=== PATIENT | female | born 1955 | race Caucasian/White ===

== ENCOUNTER 2016-11-12 11:01 | Day surgery (SDC) | payer OTHER ==
[~2016-11-12 11:01] MED LIST: Lidocain 1% EPI 1:100,000 * 30 ML MDV ONE
[2016-11-12] MEDS ORDERED: Bupivacaine 0.25% SDV* 30 ML ONE (14:21)
[2016-11-12 15:31] VITALS: BP 116/77
--- NOTE | 2016-11-13 02:06 | OP ---
DATE OF OPERATION: 11/12/16 [facility] DATE OF : 59 SURGEON: Ezequiel Melton MD MANAGER LAW: JAIDEN Nelson ANESTHESIOLOGIST: None. ANESTHESIA: Local only with 1% lidocaine with epinephrine and bicarbonate. PRE-OP DIAGNOSIS: Left carpal tunnel syndrome. POST-OP DIAGNOSIS: Left carpal tunnel syndrome. OPERATIVE PROCEDURE: Left open carpal tunnel release. INDICATIONS: Geovanna is 61. She has left carpal tunnel syndrome clinically and electrodiagnostically. It has been progressive. She has not responded adequately to nonoperative treatments. We talked about risks and benefits and she elected to proceed. EBL: 5 mL. COMPLICATIONS: None. FINDINGS: As expected. DESCRIPTION OF PROCEDURE: Geovanna was seen in the preoperative holding area and the correct site, side, and procedure were identified. We had a time-out. Then, I infiltrated the operative area with 1% lidocaine with epinephrine and bicarbonate. The patient was then brought back to the operating room and the arm was prepped and draped in the usual fashion. A formal time-out was performed. I began by making an incision 2 to 3 cm in length longitudinally in the standard location for an open carpal tunnel release. Dissection was carried down through the subcutaneous tissue and palmar fascia to expose the transverse carpal ligament. I then began the release distally and released the transverse carpal ligament just off the radial aspect to the hook of the hamate to the level of the proximal aspect of the incision. I then released the subcutaneous tissue and retracted this ulnarly and superficially. Using the tenotomy scissors under direct visualization, I released the rest of the transverse carpal ligament and the distal antebrachial fascia just ulnar to the palmaris longus tendon to a level several centimeters proximal to the wrist flexion crease. I then checked the decompression. There was no compression on the nerve proximally or distally. We, therefore, irrigated the wound. The skin was closed with some 4-0 nylon suture. The operative area was infiltrated with 0.25% Marcaine. The wound was dressed with Xeroform, 4x4's, sterile Webril, and an Kenny wrap. She was then taken to recovery room in stable condition. [id number]/[facility] #: [id number] [facility]
== END 2016-11-12 15:43 | disposition home or self-care (01) ==
LOC: OREAST 11:01
PROVIDERS: ATTEND Orthopaedic Surgery Hand Surgery
DX: G56.02 Carpal tunnel syndrome, left upper limb (principal); F17.210 Nicotine dependence, cigarettes, uncomplicated

== ENCOUNTER 2016-11-18 15:31 | Emergency (ER) | payer OTHER ==
[2016-11-18 16:38] VITALS: BP 126/72
--- NOTE | 2016-11-18 16:53 | UC ---
Skin Complaint HPI - HPI Summary HPI Summary: The patient comes in today for: 1. Rope burn: Onset: 2 hours ago. Palliative/provocative: Sore to touching. Quality: Burning sensation Region: Right distal forearm. Severity: 6/10 Time: Constant. Associated symptoms: Event: Her dog ran and caused the rope to pull around her wrist. Patient states that the ultracet is not meeting her pain control needs. She has primary care provider with whom she has an appointment next week. * - History of Current Complaint Chief Complaint: UCSkin Time Seen by Provider: 11/18/16 16:48 Stated Complaint: RT WRIST ROPE BURN Hx Obtained From: Patient - Allergy/Home Medications Allergies/Adverse Reactions: Allergies Allergy/AdvReac Type Severity Reaction Status Date / Time No Known Allergies Allergy Verified 11/18/16 16:21 Home Medications: Home Medications Acetaminophen [Mapap] 1,000 mg PO TID 11/18/16 [History Confirmed 11/18/16] traMADol TAB* [Ultram*] 50 mg PO Q6HR PRN 11/18/16 [History Confirmed 11/18/16] Review of Systems Constitutional: Negative Skin: Rash Eyes: Negative ENT: Negative Respiratory: Cough - She is on medication for this, but she does not know the name of the medication. Cardiovascular: Negative Gastrointestinal: Negative Genitourinary: Negative All Other Systems Reviewed And Are Negative: Yes PMH/Surg Hx/FS Hx/Imm Hx Previously Healthy: No - Right hand pain. Endocrine History Of: Denies: Diabetes, Thyroid Disease, Hyperthyroidism, Hypothyroidism, Dyslipidemia Cardiovascular History Of: Denies: Cardiac Disorders, Hypertension, Pacemaker/ICD, Myocardial Infarction , Congestive Heart Failure, Atrial Fibrillation, Deep Vein Thrombosis, Bleeding Disorders Respiratory History Of: Denies: COPD, Asthma, Bronchitis, Pneumonia, Pulmonary Embolism GI/ History Of: Denies: Gastroesophageal Reflux, Ulcer, Gastrointestinal Bleed, Gall Bladder Disease, Kidney Stones, Diverticulitis, Renal Disease, Urosepsis Neurological History Of: Denies: TIA, CVA, Dementia, Seizures, Migraine Psychological History Of: Denies: Anxiety, Depression, Bipolar Disorder, Schizophrenia, Post Traumatic Stress Disorder Cancer History Of: Reports: Cervical Cancer - 20 years ago. Denies: Lung Cancer, Colorectal Cancer, Breast Cancer, Prostate Cancer Other History Of: Negative For: HIV, Hepatitis B, Hepatitis C, Anticoagulant Therapy - Surgical History Surgical History: Yes Surgery Procedure, Year, and Place: Hysterectomy. LEFT CARPAL TUNNEL REPAIR 05/21 - Family History Known Family History: Positive: Cardiac Disease Negative: Hypertension, Blood Disorder - Social History Occupation: Unemployed Alcohol Use: None Substance Use Type: None Smoking Status (MU): Heavy Every Day Tobacco Smoker Type: Cigarettes Amount Used/How Often: 1 PPD Have You Smoked in the Last Year: Yes Household Exposure Type: Cigarettes - Immunization History Most Recent Tetanus Shot: 10 YEARS AGO Physical Exam Triage Information Reviewed: Yes Appearance: Well-Appearing, No Pain Distress, Well-Nourished Vital Signs: Initial Vital Signs Temp 98.6 F 11/18/16 16:26 Pulse 60 11/18/16 16:26 Resp 18 11/18/16 16:26 BP 126/72 11/18/16 16:26 Pulse Ox 97 11/18/16 16:26 Vital Signs Reviewed: Yes Eyes: Positive: Conjunctiva Clear. Negative: Discharge ENT: Positive: Hearing grossly normal. Negative: Pharyngeal erythema, Nasal congestion, Nasal drainage, Tonsillar swelling, Tonsillar exudate - Left ear: TM daniels Right ear: cerumen impaction. Dental: Negative: Gross Decay/Caries @, Dental Fracture @ Neck: Positive: Supple, Nontender, No Lymphadenopathy. Negative: Nuchal Rigidity Respiratory: Positive: Chest non-tender, Lungs clear, No respiratory distress, No accessory muscle use, Rhonchi - Slight upper airway rhonchi. Cardiovascular: Positive: RRR, No Murmur Abdomen Description: Positive: Nontender, No Organomegaly, Soft. Negative: Distended, Guarding Musculoskeletal: Positive: Strength Intact, ROM Intact, No Edema Neurological: Positive: Alert, Muscle Tone Normal Psychological: Positive: Age Appropriate Behavior, Consolable Skin: Positive: rashes - She has a linear abrasion around the wrist on the right. Slight erythema. No bleeding. Course/Dx - Course Course Of Treatment: Silvadene, dressing right forearm/wrist area. - Diagnoses Provider Diagnoses: Abrasion left forearm. Discharge - Discharge Plan Condition: Stable Disposition: HOME Patient Education Materials: Abrasion (ED) Referrals: No Primary Care Phys,NOPCP [Primary Care Provider] - 5 Days (Please see your primary care provider in 3-6 days to see how well you are doing with your injury. If you get worse, please be seen sooner. )
[2016-11-18] MEDS ORDERED: Silver Sulfadiazine 1%* 20 GM TOPICAL ONE (16:58)
== END 2016-11-18 17:31 | disposition home or self-care (01) ==
LOC: UCCORT 15:31
DX: S50.812A Abrasion of left forearm, initial encounter (principal); X58.XXXA Exposure to other specified factors, initial encounter; Y93.9 Activity, unspecified; Y92.9 Unspecified place or not applicable; Z85.41 Personal history of malignant neoplasm of cervix uteri; Z90.710 Acquired absence of both cervix and uterus; F17.210 Nicotine dependence, cigarettes, uncomplicated
CPT/HCPCS: 99213; A9270-GY; G0463

== ENCOUNTER 2017-03-08 14:15 | Emergency (ER) | payer OTHER ==
[2017-03-08] MEDS ORDERED: Ibuprofen TAB* 600 MG PO ONE (14:33)
--- NOTE | 2017-03-08 14:40 | UC ---
Lower Extremity/Ankle HPI - HPI Summary HPI Summary: Patient was walking up stairs, tripped on a blanket she was carrying up the stairs, fell and slipped on her left side, pain in the lower leg and ankle, cant walk. - History of Current Complaint Chief Complaint: UCLowerExtremity Stated Complaint: LEFT ANKLE INJURY Time Seen by Provider: 03/08/17 14:30 Hx Obtained From: Patient ?: No Onset/Duration: Sudden Onset, Lasting Hours Severity Initially: Severe Severity Currently: Severe Aggravating Factor(s): Standing, Ambulation Alleviating Factor(s): Rest Able to Bear Weight: No - Allergies/Home Medications Allergies/Adverse Reactions: Allergies Allergy/AdvReac Type Severity Reaction Status Date / Time No Known Allergies Allergy Verified 03/08/17 14:24 PMH/Surg Hx/FS Hx/Imm Hx Previously Healthy: Yes Other History Of: Negative For: HIV, Hepatitis B, Hepatitis C, Anticoagulant Therapy - Surgical History Surgical History: Yes Surgery Procedure, Year, and Place: Hysterectomy. Cataracts-lens implant - Family History Known Family History: Positive: Cardiac Disease Negative: Hypertension, Blood Disorder - Social History Alcohol Use: None Substance Use Type: None Smoking Status (MU): Heavy Every Day Tobacco Smoker Type: Cigarettes Amount Used/How Often: 1 PPD Have You Smoked in the Last Year: Yes Household Exposure Type: Cigarettes - Immunization History Most Recent Influenza Vaccination: 2017 Most Recent Tetanus Shot: 10 YEARS AGO Review of Systems Constitutional: Negative Skin: Negative Eyes: Negative ENT: Negative Respiratory: Negative Cardiovascular: Negative Gastrointestinal: Negative Genitourinary: Negative Motor: Negative Neurovascular: Negative Musculoskeletal: Arthralgia, Decreased ROM, Edema, Myalgia Neurological: Negative Psychological: Negative All Other Systems Reviewed And Are Negative: Yes Physical Exam Triage Information Reviewed: Yes Appearance: Well-Appearing, Well-Nourished, Pain Distress Vital Signs: Initial Vital Signs Temp 98 F 03/08/17 14:26 Pulse 79 03/08/17 14:26 Resp 16 03/08/17 14:26 BP 115/62 03/08/17 14:26 Pulse Ox 96 03/08/17 14:26 Vital Signs Reviewed: Yes Eye Exam: Normal ENT Exam: Normal ENT: Positive: Pharynx normal, Pharyngeal erythema, TMs normal Dental Exam: Normal Neck exam: Normal Neck: Positive: Supple, Nontender, No Lymphadenopathy Respiratory Exam: Normal Respiratory: Positive: Chest non-tender, Lungs clear, Normal breath sounds Cardiovascular Exam: Normal Cardiovascular: Positive: RRR, No Murmur, Pulses Normal Abdominal Exam: Normal Abdomen Description: Positive: Nontender, No Organomegaly, Soft Bowel Sounds: Positive: Present Musculoskeletal Exam: Normal Musculoskeletal: Positive: Strength Limited @ - cant bear weight, ROM Limited @ - in all directions, Edema @ - lateral side of ankle Neurological Exam: Normal Neurological: Positive: Alert, Muscle Tone Normal Psychological Exam: Normal Skin Exam: Normal Lower Extremity Course/Dx - Course Course Of Treatment: hx obtained, exam performed ,meds reviewed, xray obtained, consulted Dr Mims who recommended a posterior splint with side bars, follow up in the office tomorrow. splint applied, crutches given. norco dispensed. referral to ortho - Differential Dx/Diagnosis Differential Diagnosis/HQI/PQRI: Contusion, Dislocation, Fracture (Closed), Sprain, Strain Provider Diagnoses: tibial fracture, left, - Physician Notifications Discussed Patient Care With: Walker Mims Time Discussed With Above Provider: 15:05 Discharge - Discharge Plan Condition: Stable Disposition: HOME Patient Education Materials: Leg Fracture (ED) Referrals: No Primary Care Phys,NOPCP [Medical Doctor] - Walker Mims MD [Medical Doctor] - Additional Instructions: 1. no weight bearing 2. keep leg elevated at rest. 3. continue with iburprofen 600 mg every 6-8 hours. 4. I dispensed a NORCO to take at bedtime. 5. follow up with the orthopedic tomorrow, Dr Mims is the ortho who was consulted on your case.
--- NOTE | 2017-03-08 15:13 | RAD ---
Indication: LEFT lower leg/ankle pain post fall. Comparison: No relevant prior exams available on the [facility] PACS for comparison. Technique: AP, mortise, and lateral views LEFT ankle. AP and lateral views LEFT lower leg. Report: Comminuted fracture involving the distal diaphysis metaphysis junction of the tibia with intra-articular extension at the central to lateral aspect of the tibial plafond with mild osteochondral impaction. 1.5 cortex width posterior displacement. No associated fracture of the fibula or more proximal tibia evident. Normal proximal tibia fibula and ankle mortise alignment. Soft tissue swelling about the lower leg and ankle. IMPRESSION: Comminuted fracture involving the distal diaphysis metaphysis junction of the tibia with intra-articular extension at the central to lateral aspect of the tibial plafond with mild osteochondral impaction. 1.5 cortex width posterior displacement.
--- NOTE | 2017-03-08 15:13 | RAD ---
Indication: LEFT lower leg/ankle pain post fall. Comparison: No relevant prior exams available on the [facility] PACS for comparison. Technique: AP, mortise, and lateral views LEFT ankle. AP and lateral views LEFT lower leg. Report: Comminuted fracture involving the distal diaphysis metaphysis junction of the tibia with intra-articular extension at the central to lateral aspect of the tibial plafond with mild osteochondral impaction. 1.5 cortex width posterior displacement. No associated fracture of the fibula or more proximal tibia evident. Normal proximal tibia fibula and ankle mortise alignment. Soft tissue swelling about the lower leg and ankle. IMPRESSION: Comminuted fracture involving the distal diaphysis metaphysis junction of the tibia with intra-articular extension at the central to lateral aspect of the tibial plafond with mild osteochondral impaction. 1.5 cortex width posterior displacement.
[2017-03-08] MEDS ORDERED: Morphine INJ* 4 MG/ML 1 ML SYRINGE IM ONE (15:17)
[2017-03-08] MEDS ORDERED: Morphine VIAL* 10 MG/ML 1 ML VIAL ONE (15:24)
[2017-03-08] MEDS ORDERED: HYDROcodone/ACETAMIN 5-325 MG* 1 TAB PO ONE (16:04)
[2017-03-08 16:47] VITALS: BP 120/63
== END 2017-03-08 16:30 | disposition home or self-care (01) ==
LOC: UCCORT 14:15
DX: S82.202A Unspecified fracture of shaft of left tibia, initial encounter for closed fracture (principal); W10.9XXA Fall (on) (from) unspecified stairs and steps, initial encounter; F17.210 Nicotine dependence, cigarettes, uncomplicated
CPT/HCPCS: 96372; 99213; A9270-GY; G0463; J2270